=== PATIENT | male | born 1990 | race Caucasian/White ===

== ENCOUNTER 2017-04-04 17:03 | Emergency (ER) | payer OTHER ==
--- NOTE | ~2017-04-04 | CR72 ---
[facility]. [facility] A Service of [facility] & [facility] / [facility] RADIOLOGY TEXT RESULTS PATIENT: LEEROY RAMIREZ LOCATION: SED : [birth year] UNIT #: [id number] AGE: [address]: Minal Calixto SEX: M ORDER DR: [id number] [address] [address] [id number] E MR#: [id number] Acc #: [id number] NAME: LEEROY RAMIREZ : 1990 SEX: M STUDY DATE/TIME: 04/04/2017 18:36 UNIT: SED ROOM: STUDY DESCRIPTION: CR Chest Single View Portable Attending Physician: Minal Calixto Pa-C Ordering Physician: Physician Non-Staff Primary Care Physician: Primary Care Physician No MEDICAL IMAGING REPORT This report is preliminary unless electronic signature is present. EXAM Portable chest, 04/04/2017 HISTORY 26-year-old male with chest pain and arm numbness for 2 months. COMPARISON Chest 11/15/2009 FINDINGS Frontal chest demonstrates clear lungs. No pleural effusion or pneumothorax. Heart size and mediastinum are normal. Pulmonary vasculature normal. IMPRESSION No acute cardiopulmonary findings. Dictated by... Amilcar Batista M.D. THIS IS AN ELECTRONICALLY VERIFIED REPORT Amilcar Batista M.D. at 04/04/2017 10:53 PM [place] TD: 04/04/2017 22:09 JOB #: [id number] MEDICAL IMAGING REPORT Page 1 of 1
[~2017-04-04 17:03] MED LIST: ATARAX; ATARAX PO; BACTRIM DS TABL1 TA1 PO; CIPRO PO; IBUPROFEN800 MG PO; NEXIUM PO; PHENERGAN PO; PHENERGAN SUPP25 MG PR; PHENERGAN W/CO120 ML; PHENERGAN25 M1 PO; PHENERGAN25 MG PO; PREDNISONE PO; PRILOSEC PO; PROMETHAZINE V120 M1; ZOFRAN PO
[2017-04-04] MEDS ORDERED: PRILOSEC (17:15)
[2017-04-04] MEDS ORDERED: ZITHROMAX (17:15)
[2017-04-04 17:43] LABS: BASOPHIL% 0.8 % (0-2.5); EOSINOPHIL# 0.1 X10e3 (0-0.7); EOSINOPHIL% 1.6 % (0.0-7.0); HEMATOCRIT 45.9 % (38.0-50.0); HEMOGLOBIN 15.8 gm/dL (13.0-16.0); LYMPHOCYTE# 1.8 X10e3 (1.0-3.5); LYMPHOCYTE% 41.4 % (17.0-45.0); MEAN CELL VOLUME 83.4 FL (83-96); MEAN CORPUSCULAR HEMOGLOBIN 28.8 PG (28-34); MEAN CORPUSCULAR HGB CONC 34.5 g/dL (30-36); MONOCYTE# 0.5 X10e3 (0-1.0); MONOCYTE% 12.5 % (3.0-12.0); NEUTROPHIL# 1.9 X10e3 (1.5-7.1); NEUTROPHIL% 43.7 % (40-75); PLATELET COUNT 275 X10e3 (140-420); RED CELL DISTRIBUTION WIDTH 13.2 % (11.0-15.5); WHITE BLOOD COUNT 4.4 X10e3 (4.0-10.5)
[2017-04-04 17:51] LABS: DIFF IND NO
[2017-04-04 18:01] LABS: POC - CKMB <1.0 ng/mL (0.0-7.9); POC - TROPONIN <0.05 ng/mL (<=0.05)
[2017-04-04 18:02] LABS: INR 1.1; PROTHROMBIN TIME (PATIENT) 12.4 SECONDS (9.5-12.4)
[2017-04-04 18:09] LABS: PARTIAL THROMBOPLASTIN TIME 30.2 SECONDS (25.6-38.1)
[2017-04-04 18:10] LABS: ALBUMIN SERUM 4.5 g/dL (3.5-5.0); BILIRUBIN, DIRECT 0.1 mg/dL (0.0-0.2); BILIRUBIN,INDIRECT 0.2 mg/dL (0.0-0.9); BILIRUBIN,TOTAL 0.3 mg/dL (0.2-2.0); CALCIUM SERUM 9.5 mg/dL (8.4-10.2); GLOM FILT RATE Estimated 102.7 mL/min (>60); POTASSIUM 3.6 mmol/L (3.5-5.1); PROTEIN TOTAL SERUM 7.8 g/dL (6.0-8.3)
== END 2017-04-04 20:07 | disposition home or self-care (01) ==
LOC: SED 17:03
PROVIDERS: Physician Assistant
DX: R07.89 Other chest pain (principal); R42 Dizziness and giddiness; K21.9 Gastro-esophageal reflux disease without esophagitis; F41.9 Anxiety disorder, unspecified
CPT/HCPCS: 36415; 71010; 80048; 80076; 82553; 84484; 85025; 85610; 85730; 99284